=== PATIENT | female | born 1990 | race Caucasian/White ===

== ENCOUNTER 2017-02-25 00:20 | Emergency (ER) | payer SELFPAY ==
[2016-03-21 01:46] VITALS: BP 145/99
[~2017-02-25] VITALS: Ht 180.3 cm; Wt 81.6 kg
--- NOTE | 2017-02-25 00:28 | PHYS DOC ---
Past History Past Medical History: No Pertinent History Past Surgical History: No Surgical History Smoking: Non-smoker Alcohol Use: Heavy Drug Use: None Adult General Chief Complaint Chief Complaint: ANXIETY/PANIC ATTACK HPI HPI Patient is a 26 year old female who presents with nausea vomiting and dehydration. She states she's been drinking stocky and other alcoholic drinks over the last several days. She's vomited twice. She denies any abdominal pain chest pain or other concerns. She states that she would like to have some IV fluids to make herself feel better. Review of Systems Review of Systems Constitutional: Denies fever or chills Eyes: Denies change in visual acuity, redness, or eye pain HENT: Denies nasal congestion or sore throat Respiratory: Denies cough or shortness of breath Cardiovascular: No additional information not addressed in HPI GI: Denies abdominal pain, bloody stools or diarrhea, positive for nausea, vomiting, : Denies dysuria or hematuria Musculoskeletal: Denies back pain or joint pain Integument: Denies rash or skin lesions Neurologic: Denies headache, focal weakness or sensory changes Endocrine: Denies polyuria or polydipsia Allergies Allergies Allergies Coded Allergies Type Severity Reaction Last Updated Verified No Known Drug Allergies 03/21/16 No Physical Exam Physical Exam Constitutional: Well developed, well nourished, no acute distress, non-toxic appearance. [] HENT: Normocephalic, atraumatic, bilateral external ears normal, oropharynx moist, no oral exudates, nose normal. [] Eyes: PERRLA, EOMI, conjunctiva normal, no discharge. [] Neck: Normal range of motion, no tenderness, supple, no stridor. [] Cardiovascular:Heart rate regular rhythm, no murmur [] Lungs & Thorax: Bilateral breath sounds clear to auscultation [] Abdomen: Bowel sounds normal, soft, no tenderness, no masses, no pulsatile masses. [] Skin: Warm, dry, no erythema, no rash. [] Back: No tenderness, no CVA tenderness. [] Extremities: No tenderness, no cyanosis, no clubbing, ROM intact, no edema. [] Neurologic: Alert and oriented X 3, normal motor function, normal sensory function, no focal deficits noted. [] Psychologic: Affect normal, judgement normal, mood normal. [] EKG EKG [] Radiology/Procedures Radiology/Procedures [] Impressions: Nausea Course & Med Decision Making Course & Med Decision Making Pertinent Labs and Imaging studies reviewed. (See chart for details) Lab work did not show acute abnormality's. Patient feels better after receiving IV fluids and Zofran. She is being discharged with Zofran, return precautions given. She is agreeable to the plan and being discharged in stable condition this time. Dragon Disclaimer Dragon Disclaimer This chart was dictated in whole or in part using Voice Recognition software in a busy, high-work load, and often noisy Emergency Department environment. It may contain unintended and wholly unrecognized errors or omissions. Departure Departure: Impression: Primary Impression: Nausea Disposition: HOME, SELF-CARE Condition: STABLE Referrals: [facility] (PCP) Patient Instructions: Nausea and Vomiting Additional Instructions: Your blood work did not show any acute abnormalities. You received IV fluids and being discharged home. You should follow up with her primary care physician. You should avoid drinking alcohol for the next several days. You can take Zofran as needed for nausea. Scripts Ondansetron (ZOFRAN ODT) 4 Mg Tab.rapdis 1 TAB SL Q8HRS Y for NAUSEA, #5 TAB Prov: PEDRO INMAN MD 02/25/17 PEDRO INMAN MD Feb 25, 2017 00:28
[2017-02-25] MEDS ORDERED: IV NORMAL SALINE 1,000ML 1,000 ML IV SCH (01:00)
[2017-02-25] MEDS ORDERED: ONDANSETRON PF 4 MG/2 ML VIAL. IV ONE (01:00)
[2017-02-25 01:02] LABS: BASO # 0.1 x10^3/uL (0.0-0.2); BASO % 1 % (0-3); EOS # 0.1 x10^3/uL (0.0-0.7); EOS % 1 % (0-3); HEMATOCRIT 39.5 % (36.0-47.0); HEMOGLOBIN 13.7 g/dL (12.0-15.5); LYMPH # 2.4 x10^3/uL (1.0-4.8); LYMPH % 26 % (24-48); MEAN CORPUSCULAR HEMOGLOBIN 31 pg (25-35); MEAN CORPUSCULAR HGB CONC 35 g/dL (31-37); MEAN CORPUSCULAR VOLUME 90 fL (79-100); MONO % 11 % (0-9); NEUT # 5.7 x10^3uL (1.8-7.7); NEUT % 61 % (31-73); PLATELET COUNT 230 x10^3/uL (140-400); RED CELL DISTRIBUTION WIDTH 13.4 % (11.5-14.5); WHITE BLOOD COUNT 9.3 x10^3/uL (4.0-11.0)
[2017-02-25 01:06] LABS: BILIRUBIN,URINE NEG (NEG); CLARITY,URINE CLEAR; COLOR,URINE YELLOW; GLUCOSE,URINE NEG (NEG)
[2017-02-25 01:07] LABS: BACTERIA,URINE 0 /HPF (0-FEW); NITRITE,URINE NEG (NEG); RBC,URINE 0 /HPF (0-2); SQUAMOUS EPITHELIAL CELL,UR FEW /LPF; UROBILINOGEN,URINE 0.2 mg/dL (0.2 mg/dL); WBC,URINE OCC /HPF (0-4)
[2017-02-25 01:13] LABS: ALBUMIN 3.7 g/dL (3.4-5.0); ALK PHOS 105 U/L (46-116); ALT (SGPT) 37 U/L (14-59); ANION GAP 9 (6-14); AST (SGOT) 35 U/L (15-37); BLOOD UREA NITROGEN 10 mg/dL (7-20); CALCIUM 8.9 mg/dL (8.5-10.1); CARBON DIOXIDE 27 mmol/L (21-32); CHLORIDE 104 mmol/L (98-107); CREATININE 0.8 mg/dL (0.6-1.0); DIRECT BILIRUBIN < 0.1 mg/dL (0.0-0.2); GFR 85.4; GLUCOSE 108 mg/dL (70-99); LIPASE 235 U/L (73-393); POTASSIUM 4.1 mmol/L (3.5-5.1); SODIUM 140 mmol/L (136-145); TOTAL BILIRUBIN 0.2 mg/dL (0.2-1.0); TOTAL PROTEIN 8.2 g/dL (6.4-8.2)
[2017-02-25] MEDS ORDERED: IV NORMAL SALINE 1,000ML 1,000 ML IV ONE (01:30)
[2017-02-25] MEDS ORDERED: ONDA4TAB10 SL (02:24)
== END 2017-02-25 02:45 | disposition home or self-care (01) ==
LOC: ER 00:20
DX: E86.0 Dehydration (principal); R11.2 Nausea with vomiting, unspecified
CPT/HCPCS: 36415; 80048; 80076; 81001; 83690; 85025; 96361; 96374; 99284; J2405; J7030

== ENCOUNTER 2017-04-21 11:43 | Emergency (ER) | payer SELFPAY ==
[~2017-04-21 11:43] MED LIST: ONDA4TAB10 SL
[2017-04-21 11:55] VITALS: BP 123/79
--- NOTE | 2017-04-21 12:38 | ED.ADGEN ---
Past History Past Medical History: No Pertinent History Past Surgical History: No Surgical History Smoking: Non-smoker Alcohol Use: Occasionally Drug Use: None Adult General Chief Complaint Chief Complaint sore throat HPI HPI Patient is a 26-year-old female with history of recurrent strep pharyngitis who presents with sore throat starting 2 days ago. Patient states she initially took left over amoxicillin for one of her children. Her pain improved and then returned this morning. Denies dysphagia, fever, chills, neck pain. No hoarseness or dysphonia. No other acute symptoms or complaints.[] Review of Systems Review of Systems Constitutional: Denies fever or chills [] Eyes: Denies change in visual acuity, redness, or eye pain [] HENT: Denies nasal congestion, reports sore throat.[] Respiratory: Denies cough or shortness of breath [] Cardiovascular: No additional information not addressed in HPI [] GI: Denies abdominal pain, nausea, vomiting, bloody stools or diarrhea [] : Denies dysuria or hematuria [] Musculoskeletal: Denies back pain or joint pain [] Integument: Denies rash or skin lesions [] Neurologic: Denies headache, focal weakness or sensory changes [] Endocrine: Denies polyuria or polydipsia [] All other systems were reviewed and found to be within normal limits, except as documented in this note. Allergies Allergies Allergies Coded Allergies Type Severity Reaction Last Updated Verified No Known Drug Allergies 03/21/16 No Physical Exam Physical Exam Constitutional: Well developed, well nourished, no acute distress, non-toxic appearance. [] HENT: Normocephalic, atraumatic, bilateral external ears normal, oropharynx moist, no oral exudates, nose normal. [] Eyes: PERRLA, EOMI, conjunctiva normal, no discharge. [] Neck: Normal range of motion, Pharyngeal erythema with min swelling, appreciable abscess, hoarseness or stridor. [] Cardiovascular:Heart rate regular rhythm, no murmur [] Lungs & Thorax: Bilateral breath sounds clear to auscultation [] Abdomen: Bowel sounds normal, soft, no tenderness, no masses, no pulsatile masses. [] Extremities: No tenderness, no cyanosis, no clubbing, ROM intact, no edema. [] Neurologic: Alert and oriented X 3, normal motor function, normal sensory function, no focal deficits noted. [] Psychologic: Affect normal, judgement normal, mood normal. [] Current Patient Data Vital Signs Vital Signs Date Time Temp Pulse Resp B/P (MAP) Pulse Ox O2 Delivery O2 Flow Rate FiO2 04/21/17 11:55 98.8 87 18 97 Room Air EKG EKG [] Radiology/Procedures Radiology/Procedures [] Course & Med Decision Making Course & Med Decision Making Pertinent Labs and Imaging studies reviewed. (See chart for details) [Abx Rx.] Final Impression Final Impression [1. acute pharyngitis] Problems: Dragon Disclaimer Dragon Disclaimer This electronic medical record was generated, in whole or in part, using a voice recognition dictation system. JAKE IBRAHIM DO Apr 21, 2017 12:38
== END 2017-04-21 12:32 | disposition home or self-care (01) ==
LOC: ER 11:45
DX: J02.9 Acute pharyngitis, unspecified (principal)
CPT/HCPCS: 99283

== ENCOUNTER 2020-06-08 23:46 | Emergency (ER) | payer SELFPAY ==
[~2020-06-08] VITALS: Ht 180.3 cm; Wt 100.0 kg
[2020-06-09 00:02] VITALS: BP 124/82
[2020-06-09] MEDS ORDERED: BENZOCAINE/MENTHOL LOZNGE 18'S BOX. PO PRN (00:15)
--- NOTE | 2020-06-09 00:25 | PHYS DOC ---
Past History Past Medical History: No Pertinent History Past Surgical History: No Surgical History Smoking: Non-smoker Alcohol Use: Occasionally Drug Use: None Adult General Chief Complaint Chief Complaint: SORE THROAT HPI HPI Patient is a 29-year-old female with a past medical history significant for multiple episodes of strep pharyngitis in her life who presents with sore throat. States she has had a sore throat for approximately 3 to 4 days, on the left greater than the right. States that she has had no other symptoms including headache, fevers, runny nose or nasal congestion, chest pain, shortness of breath, cough, abdominal pain, nausea, vomiting, diarrhea. States that he has been around known known ill contacts, has had no recent travel either. States she gets strep throat often and has been contemplating getting her tonsils taken out. States that she thinks she had a temperature the other day of 100.1. Review of Systems Review of Systems Review of systems otherwise unremarkable outside of HPI Allergies Allergies Allergies Coded Allergies Type Severity Reaction Last Updated Verified No Known Drug Allergies 03/21/16 No Physical Exam Physical Exam Constitutional: Well developed, well nourished, no acute distress, non-toxic appearance. [] HENT: Normocephalic, atraumatic, bilateral external ears normal, oropharynx erythematous with no exudates but left sided tonsillar swelling to about one quarter of the with the back of the airway. Uvula slightly deviated to the right. Eyes: PERRLA, EOMI, conjunctiva normal, no discharge. [] Neck: Normal range of motion, no tenderness, supple, no stridor left-sided cervical lymphadenopathy Cardiovascular:Heart rate regular rhythm, no murmur [] Lungs & Thorax: Bilateral breath sounds clear to auscultation [] Abdomen: soft, no tenderness, no masses, no pulsatile masses. [] Skin: Warm, dry, no erythema, no rash. [] Neurologic: Alert and oriented X 3, normal motor function, normal sensory function, no focal deficits noted. [] Psychologic: Affect normal, judgement normal, mood normal. [] EKG EKG [] Radiology/Procedures Radiology/Procedures [] Heart Score Risk Factors: Risk Factors: DM, Current or recent (<one month) smoker, HTN, HLP, family history of CAD, obesity. Risk Scores: Risk Factors: DM, Current or recent (<one month) smoker, HTN, HLP, family history of CAD, obesity. Course & Med Decision Making Course & Med Decision Making Patient is a 29-year-old female who presents with a chief complaint of 3 to 4 days of sore throat Vital signs not concerning. Physical exam noted above. Patient given Tylenol, ibuprofen, steroids and Cepacol lozenge as well as first dose of Augmentin in the ED. patient with a Centor score of at least 3 depending on patient's history. Discussed with patient differential diagnosis between peritonsillar abscess, tonsillar cellulitis or pharyngitis. Work-up advised in the emergency department included line, labs, medications given and probable CT to evaluate for abscess. Patient stated that she has had this several times, always takes antibiotics and has no insurance right now and does not want to do all of that stuff. States she would like to try antibiotics by themselves first and will come back to the emergency department if it does not work. Advised patient against this as explained, if indeed it is a peritonsillar abscess it could get large really fast and obstruct her airway or make her really sick which includes spread of the infection into the neck, head or medias tinum, sepsis and in the worst case scenario . Patient again, very politely stated that she has had this before and would just like to try the antibiotics. Started patient on Augmentin, gave dexamethasone for pain and started patient on Augmentin at home. Gave strict return precautions to the emergency department in the next 24 hours. Advised if anything does not get better in 24 hours or if things begin to get worse in any time come immediately back to the emergency department. Patient is grateful, verbalized understanding and agreed with plan of discharge. [] Dragon Disclaimer Dragon Disclaimer This electronic medical record was generated, in whole or in part, using a voice recognition dictation system. Departure Departure: Impression: Primary Impression: Sore throat Additional Impressions: Tonsil asymmetry Tonsillar enlargement Tonsillar erythema Referrals: PCP,NO (PCP) Patient Instructions: Tonsillitis, Viral and Bacterial Pharyngitis, Easy-to-[place] d Scripts Amoxicillin/Potassium Clav (AUGMENTIN [id number] TABLET) 1 Each Tablet 1 TAB PO BID for tonsillitis for 10 Days, #19 TAB 0 Refills Prov: MIAN YEN MD 06/09/20 Problem Qualifiers MIAN YEN MD Jun 09, 2020 00:25
[2020-06-09] MEDS ORDERED: AMOXICILLIN/K CLAV 875/125MG TABLET. ONE (00:26)
[2020-06-09] MEDS ORDERED: AMOX1TAB61 PO (00:27)
[2020-06-09] MEDS ORDERED: AMOXICILLIN/K CLAV 875/125MG TABLET. PO ONE (00:30)
[2020-06-09] MEDS ORDERED: IBUPROFEN 600 MG TABLET. PO ONE (00:30)
[2020-06-09] MEDS ORDERED: ACETAMINOPHEN 500 MG TABLET PO ONE (00:30)
== END 2020-06-09 01:15 | disposition home or self-care (01) ==
LOC: ER 23:46
DX: J02.9 Acute pharyngitis, unspecified (principal); J35.1 Hypertrophy of tonsils; R59.0 Localized enlarged lymph nodes
CPT/HCPCS: 99284